=== PATIENT | female | born 1985 | race Caucasian/White ===

== ENCOUNTER 2024-08-11 12:25 | Emergency (ER) | payer MEDICAID ==
[~2024-08-11] VITALS: Ht 149.9 cm; Wt 58.2 kg
[2024-08-11 12:46] VITALS: TEMP 98.3
[2024-08-11] MEDS ORDERED: PREDNISONE50 MG PO (13:48)
[2024-08-11 14:05] VITALS: BP 105/65; PULSE 68
== END 2024-08-11 14:05 | disposition home or self-care (01) ==
LOC: COL.ER 12:25
DX: R21 Rash and other nonspecific skin eruption (principal)